=== PATIENT | male | born 1955 | race Caucasian/White ===

== ENCOUNTER 2021-07-16 08:16 | Outpatient (CLI) | payer MEDICARE, SELFPAY ==
--- NOTE | ~2021-07-16 | CT_ITS ---
EXAMINATION: CT lung screening DATE: 07/16/2021 08:43 INDICATION: Personal history of nicotine dependence, current smoker with 60 pack year history TECHNIQUE: Computed tomography (CT) of the chest was performed without intravenous contrast. The dose -length product (DLP) was 157.98 mGy-cm. Automated exposure control and iterative reconstruction tech [employer] were employed. COMPARISON: None FINDINGS: There is mild emphysema. No suspicious pulmonary nodules are identified. The lungs are free of acute opacities. There is no pleural effusion or pneumothorax. No pathologically enlarged thoraci c lymph nodes are identified. The heart size is normal. Calcified coronary artery atherosclerosis is noted. IMPRESSION: 1. Lung-RADS category 1: Negative. Continue annual screening with noncontrast low-dose chest CT in 12 months. Reviewed, dictated and finalized at location B. IMPRESSION: 1. Lung-RADS category 1: Negative. Continue annual screening with noncontrast l ow-dose chest CT in 12 months.
== END 2021-07-16 08:17 | disposition home or self-care (01) ==
LOC: ANHIMG 08:28
PROVIDERS: PCP Internal Medicine; Visit Provider Clinical Nurse Specialist
DX: Z12.2 Encounter for screening for malignant neoplasm of respiratory organs (principal); Z87.891 Personal history of nicotine dependence
CPT/HCPCS: 71271

== ENCOUNTER 2021-07-16 14:19 | Outpatient (CLI) | payer MEDICARE, SELFPAY | END 2021-07-16 14:20 | disposition home or self-care (01) | PROVIDERS: PCP Internal Medicine; Visit Provider Clinical Nurse Specialist | DX: H90.3 Sensorineural hearing loss, bilateral (principal) | CPT/HCPCS: 92557; 92567 ==

== ENCOUNTER 2021-10-06 10:14 | Outpatient (CLI) | payer MEDICARE, SELFPAY ==
--- NOTE | ~2021-10-06 | XR_ITS ---
XR lumbar spine 2-3V 10/06/2021 10:31 Indication: Low back pain Procedure: 3 views lumbar spine Comparison: 09/12/2013 Findings: There is disc narrowing at L3-4, L4-5 and L5-S1.. There is facet hypertrophy at L5-S1. No e vidence for spondylolisthesis. There is atherosclerosis of the aorta. Pedicles are intact. Sacral for amen are symmetric. Impression: 1: Moderate lumbar spondylosis. Reviewed, dictated and finalized at location A. Impression: 1: Moderate lumbar spondylosis.
== END 2021-10-06 10:15 | disposition home or self-care (01) ==
LOC: ANHIMG 10:17
PROVIDERS: PCP Internal Medicine; Visit Provider Clinical Nurse Specialist
DX: M54.50 Low back pain, unspecified (principal); M47.816 Spondylosis without myelopathy or radiculopathy, lumbar region
CPT/HCPCS: 72100

== ENCOUNTER 2021-10-13 09:11 | Outpatient (CLI) | payer MEDICARE, SELFPAY ==
[2021-10-13 10:54] LABS: Anion Gap 11 mmol/L (8-16); Blood Urea Nitrogen 19 mg/dL (9-20); Calcium 9.1 mg/dL (8.4-10.2); Carbon Dioxide 30 mmol/L (22-30); Chloride 95 mmol/L (98-107); Estimated Glomerular Filt Rate > 60; Glucose 120 mg/dL (65-110); Potassium 4.3 mmol/L (3.4-5.0); Sodium 136 mmol/L (137-145)
== END 2021-10-13 09:12 | disposition home or self-care (01) ==
LOC: ANHGOSHLAB 09:13
PROVIDERS: PCP Internal Medicine; Visit Provider Clinical Nurse Specialist
DX: I10 Essential (primary) hypertension (principal)
CPT/HCPCS: 36415; 80048

== ENCOUNTER 2021-10-15 13:26 | Outpatient (CLI) | payer MEDICARE, SELFPAY ==
--- NOTE | ~2021-10-15 | MR_ITS ---
EXAMINATION: MR lumbar spine wo con DATE: 10/15/2021 14:04 INDICATION: Moderate lumbar spondylosis. TECHNIQUE: Magnetic resonance imaging (MRI) of the lumbar spine was performed without intravenous con trast. Sequences included sagittal T2-weighted FSE, sagittal T2-weighted FS FSE, sagittal T1-weighted FSE, and axial T2-weighted FSE. COMPARISON: Lumbar spine MRI 10/20/2013, radiographs 10/06/2021 FINDINGS: There is 5 degrees levocurvature of lumbar spine. There is 3 mm retrolisthesis of L5 on S1. There is mild chronic anterior wedging of T12 vertebral body. There is mildly decreased disc height at L3-L4 and L4-L5 and severely decreased disc height at L5-S1 with endplate remodeling. The distal s anthony cord signal intensity is normal. The conus medullaris is at L1. The following disc levels are s pecifically discussed: L1-L2: The disc is bulging. There is mild bilateral facet joint osteoarthritis. There is mild left ne ural foraminal stenosis. There is mild central canal stenosis. L2-L3: The disc is bulging and has an annular fissure. There is mild bilateral facet joint osteoarthr itis. There is mild right and moderate left neural foraminal stenosis. There is mild central canal st enosis. L3-L4: The disc is bulging and has an annular fissure. There is moderate bilateral facet joint osteoa rthritis. There is moderate right and mild left neural foraminal stenosis. There is mild central miguel l stenosis. L4-L5: The disc is bulging and has an annular fissure. There is moderate bilateral facet joint osteoa rthritis. There is moderate bilateral neural foraminal stenosis. There is mild central canal stenosis . L5-S1: The disc is bulging and has an annular fissure. There is mild bilateral facet joint osteoarthr itis. There is mild bilateral neural foraminal stenosis. There is mild central canal stenosis. IMPRESSION: 1. Severe lumbar spondylosis, stable from 10/20/2013. Reviewed, dictated and finalized at location A.
== END 2021-10-15 13:27 | disposition home or self-care (01) ==
PROVIDERS: PCP Internal Medicine; Visit Provider Clinical Nurse Specialist
DX: M47.816 Spondylosis without myelopathy or radiculopathy, lumbar region (principal)
CPT/HCPCS: 72148

== ENCOUNTER 2022-04-23 13:45 | Outpatient (CLI) | payer MEDICARE, SELFPAY ==
--- NOTE | ~2022-04-23 | CT_ITS ---
EXAMINATION:CT lung screening DATE: 04/23/2022 13:59 INDICATION: Tobacco use. Current smoker with 40 pack year history. TECHNIQUE: Computed tomography (CT) of the chest was performed without intravenous contrast. Automate d exposure control and iterative reconstruction technique were employed. The dose-length product (DLP ) was 206.60 mGy-cm. COMPARISON: Chest CT 07/16/2021 FINDINGS: There is stable mild scarring at the lung apices. There is a 3 mm nodule in right lower lob e. No pleural effusion. The heart size is normal. There are coronary artery calcifications. No perica rdial effusion. There is diffuse hepatic steatosis. There is mild bilateral gynecomastia. There are s uture anchors in left humeral head. There is mild thoracic spondylosis. IMPRESSION: 1. Lung-RADS category 2: Benign appearance or behavior. Continue annual screening with noncontrast lo w-dose chest CT in 12 months. Reviewed, dictated and finalized at location A. 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 Lung-RADS category 2: Benign appearance or behavior. Continue annual screeni ng with noncontrast low-dose chest CT in 12 months.
== END 2022-04-23 13:46 | disposition home or self-care (01) ==
LOC: ANHIMG 13:48
PROVIDERS: PCP Internal Medicine; Visit Provider Clinical Nurse Specialist
DX: Z12.2 Encounter for screening for malignant neoplasm of respiratory organs (principal); Z87.891 Personal history of nicotine dependence
CPT/HCPCS: 71271

== ENCOUNTER 2022-05-19 08:00 | Outpatient (NON) | payer MEDICARE, SELFPAY | END 2022-05-19 08:01 | disposition home or self-care (01) | LOC: ANHLAB 05-20 09:19 | PROVIDERS: PCP Internal Medicine; Visit Provider Internal Medicine Gastroenterology | DX: Z12.11 Encounter for screening for malignant neoplasm of colon (principal) | CPT/HCPCS: 88305 ==

== ENCOUNTER 2022-05-19 11:11 | Day surgery (SDC) | payer MEDICARE, SELFPAY ==
[2022-04-23 09:00] VITALS: BMI 29.7
[2022-05-11 10:47] VITALS: BMI 29.8
--- NOTE | 2022-05-19 09:16 | WPDANESEPPF ---
Anes - Initial Pre Proc Eval Procedure: Operation Date: 05/19/22 13:00 Proposed Procedures p Screening Colonoscopy - Stuart Holden MD Date/Time: 05/19/22 09:16 Surgeon: Stuart Holden MD Pre Op Diagnosis: Neoplasm Screening Patient Data Age: 66 Gender: M Height: 1.8 m Weight: 97 kg Allergies Allergy/AdvReac Type Severity Reaction Status Date / Time No Known Allergies Allergy Verified 05/11/22 10:47 Home Medications Medication Instructions Recorded Confirmed Type aspirin 81 mg tablet,delayed 81 mg PO DAILY 08/05/21 05/11/22 History release (Adult Low Dose Aspirin) loratadine 10 mg tablet (Allergy 10 mg PO DAILY 10/05/21 05/11/22 History Relief (loratadine)) atorvastatin 10 mg tablet See Rx Instructions .Route 01/21/22 05/11/22 Rx .COMPLEX #90 tabs lisinopril 40 mg tablet See Rx Instructions .Route 02/02/22 05/11/22 Rx .COMPLEX #90 tabs hydrochlorothiazide 12.5 mg tablet See Rx Instructions .Route 04/20/22 05/11/22 Rx .COMPLEX #90 tabs Patient hx anesthesia problems: none Family hx anesthesia problems: none Results Review: All pre-operative results and documents have been reviewed as part of the pre-operative evaluation. [facility] Past Medical History Medical History Essential hypertension Hyperlipidemia Lumbar spondylosis Obesity VAMSI (obstructive sleep apnea) Smoker Surgical History Surgical History H/O hernia repair 2017 H/O shoulder surgery Left Fracture 2010 Family History Family History Father Family history of lung cancer Social History Social History (Updated 04/19/22 @ 10:03 by Tiana Martinez MA) Smoking packs per day: 1 Smoking cigarettes per day: 20.0 Years smoked: 40 Smoking pack-years: 40.00 Smoking status: Heavy tobacco smoker Tobacco type: cigarettes Smoking end date: 09/29/21 Alcohol intake: current Substance use: never Substance use type: does not use Lack of Transportation: No Lack of Food: Never True Current Housing: I Have Housing Concerned About Future Housing: No Difficulty Paying Gas/Electric Bills: No Difficulty Paying for Meds: No Currently Unemployed: No Living arrangements: alone Spiritual care concerns: No Anes - Eval Final PreProcedure Day of Procedure 05/19/22 09:16 Patient weight: obese Heart: regular rate and rhythm Lungs: clear to auscultation and normal air movement Airway: Mallampati scale class II Neurological: alert and oriented Last oral intake: >/= 8 hours ASA classification: III Emergent: no Anesthetic plan: proceed Anesthesia type and monitoring: general GIVS Results Review: All pre-operative results and documents have been reviewed as part of the pre-operative evaluation. Informed Consent: The patient's anesthetic plan and its attendant risks and benefits were discussed with the patient/family/POA. Questions were solicited and answers provided to the satisfaction of the patient/family/POA.
[2022-05-19 11:58] VITALS: BP 128/81; PULSE 92; RESP 15; TEMP 36.8; O2SAT 100; BMI 29.9
[2022-05-19] MEDS: LACTATED RINGERS 1,000 ML 150 ML IV CONT (12:10)
--- NOTE | 2022-05-19 12:38 | PM.HPGS ---
History of Present Illness History of Present Illness Consent: Risks, benefits, and alternatives have been discussed and questions answered. Patient agrees to proceed with procedure. Chief complaint: Neoplasm Screening Narrative: Kj Bermeo is a 66 year old male here for screening colonoscopy, last one 2013 Review of Systems Constitutional: Constitutional: Denies headache(s) and Denies weakness Eyes: Eyes: Denies blurry vision ENT: Reports Normal hearing present, Denies headache(s) and Denies neck pain Cardiovascular: Cardiovascular: Denies chest pain and Denies dyspnea Respiratory: Respiratory: Denies dyspnea Gastrointestinal: Gastrointestinal: Reports no additional gastrointestinal complaints Genitourinary: Genitourinary: Denies dysuria Musculoskeletal: Musculoskeletal: Denies neck pain Integumentary/Breasts: Skin/Breast: Denies dry skin Neurologic: Reports Normal hearing present, Denies headache(s) and Denies weakness Psychiatric: Psychiatric: Denies anxiety Endocrine: Endocrine: Denies change in body appearance Hematologic/Lymphatic: Hematologic/Lymphatic: Denies easy bleeding Allergic/Immunologic: Allergic/Immunologic: Denies urticaria PMFSH Past Medical History Medical History Essential hypertension Hyperlipidemia Lumbar spondylosis Obesity VAMSI (obstructive sleep apnea) Smoker Surgical History Surgical History H/O hernia repair 2017 H/O shoulder surgery Left Fracture 2010 Family History Family History Father Family history of lung cancer Social History Social History (Updated 04/19/22 @ 10:03 by Tiana Martinez MA) Smoking packs per day: 1 Smoking cigarettes per day: 20.0 Years smoked: 40 Smoking pack-years: 40.00 Smoking status: Heavy tobacco smoker Tobacco type: cigarettes Smoking end date: 09/29/21 Alcohol intake: current Substance use: never Substance use type: does not use Lack of Transportation: No Lack of Food: Never True Current Housing: I Have Housing Concerned About Future Housing: No Difficulty Paying Gas/Electric Bills: No Difficulty Paying for Meds: No Currently Unemployed: No Living arrangements: alone Spiritual care concerns: No Meds Home Medications and Allergies Home Medications Medication Instructions Recorded Confirmed Type aspirin 81 mg tablet,delayed 81 mg PO DAILY 08/05/21 05/19/22 History release (Adult Low Dose Aspirin) loratadine 10 mg tablet (Allergy 10 mg PO DAILY 10/05/21 05/19/22 History Relief (loratadine)) atorvastatin 10 mg tablet See Rx Instructions .Route 01/21/22 05/19/22 Rx .COMPLEX #90 tabs lisinopril 40 mg tablet See Rx Instructions .Route 02/02/22 05/19/22 Rx .COMPLEX #90 tabs hydrochlorothiazide 12.5 mg tablet See Rx Instructions .Route 04/20/22 05/19/22 Rx .COMPLEX #90 tabs Allergies Allergy/AdvReac Type Severity Reaction Status Date / Time No Known Allergies Allergy Verified 05/19/22 11:57 Vital Signs Vital Signs - 24 hr 05/19/22 11:58 Temperature 98.2 F Pulse Rate 92 Respiratory Rate 15 Blood Pressure 128/81 Pulse Oximetry 100 Oxygen Delivery Room Air Exam Const: General: comfortable and no acute distress HENMT: Face/Nose/Sinus: Normal nares present Eyes: General: appearance normal, both eyes and all related structures Neck: Neck: no JVD Resp: Auscultation: clear to auscultation bilaterally Cardio: Rate: regular rate Rhythm: regular rhythm GI: Inspection: non-distended GI Palp: Yes Soft to palpation Skin: General skin exam: normal color Neuro: General: gait normal Speech: normal speech Extrem: General: normal to inspection Psych: Mental Status: mental status grossly normal Assessment and Plan Assessment and plan (1) Screening for colon cancer: Code(s): Z12.11 - Encounter for screening f
[2022-05-19 13:06] VITALS: BP 94/61; PULSE 84; RESP 14; O2SAT 93
[2022-05-19 13:16] VITALS: BP 110/71; PULSE 75; RESP 18; O2SAT 100
[2022-05-19 13:26] VITALS: BP 122/84; PULSE 78; RESP 18; O2SAT 99
--- NOTE | 2022-05-19 14:21 | WPDANESPN ---
Anes - Prog Note Post-Op Date/Time: 05/19/22 14:21 Cardiovascular status: normal Respiratory status: normal Airway patency: baseline Mental status: baseline Post-Op hydration status: normal Vital Signs: Last Vital Signs Temp 36.8 C 05/19/22 11:58 Pulse 78 05/19/22 13:26 Resp 18 05/19/22 13:26 BP 122/84 05/19/22 13:26 Pulse Ox 99 05/19/22 13:26 O2 Del Method Room Air 05/19/22 13:26 Pain Score (VAS): 0 I/O: Intake & Output 05/18/22 05/19/22 05/19/22 23:59 07:59 15:59 Intake Total 500 Balance 500 Post-procedural complaints: none Patient Feedback: Patient satisfied with anesthetic care.
== END 2022-05-19 13:50 | disposition home or self-care (01) ==
PROVIDERS: PCP Internal Medicine; Visit Provider Internal Medicine Gastroenterology
PROC: 0DJD8ZZ Inspection of Lower Intestinal Tract, Via Natural or Artificial Opening Endoscopic (ICD-10-PCS; CPT 45378; principal; 2022-05-19 13:00)
DX: Z12.11 Encounter for screening for malignant neoplasm of colon (principal)
CPT/HCPCS: 45385

== ENCOUNTER 2022-09-17 11:53 | Outpatient (CLI) | payer MEDICARE, SELFPAY ==
[2022-09-17 18:31] LABS: Basophils Absolute Auto 0.1 K/mm3 (0.0-0.1); Basophils Percent Auto 0.7 % (0.2-1.2); Eosinophils Absolute Auto 0.1 K/mm3 (0-0.3); Eosinophils Percent Auto 0.9 % (0-4.4); Hematocrit 42.4 % (42.0-52.0); Hemoglobin 14.6 g/dL (14.0-18.0); Immature Granulocyte Absolute 0.03 K/mm3 (0.00-0.031); Immature Granulocyte Percent A 0.2 % (0-0.5); Lymphocytes Percent Auto 18.8 % (18.3-44.2); Mean Corpuscular HGB Conc 34.4 g/dl (32-36); Mean Corpuscular Hemoglobin 31.6 pg (26-34); Mean Corpuscular Volume 91.8 fl (80-100); Mean Platelet Volume 9.5 fl (7.4-10.4); Monocytes Absolute Auto 0.9 K/mm3 (0.1-0.6); Monocytes Percent Auto 7.5 % (2.6-8.5); Neutrophils Absolute Auto 8.8 K/mm3 (1.3-6.7); Neutrophils Percent Auto 71.9 % (45.5-73.1); Platelet Count Result 301 k/mm3 (150-375); Red Blood Count 4.62 M/mm3 (4.6-6.20); Red Cell Distribution Width 12.3 % (11.5-14.5); White Blood Count 12.2 K/mm3 (4.5-10.0)
[2022-09-17 19:01] LABS: Alanine Aminotransferase 34 U/L (6-50); Albumin Level 4.2 g/dL (3.5-5.1); Alkaline Phosphatase 83 U/L (38-126); Anion Gap 8 mmol/L (8-16); Aspartate Amino Transferase 27 U/L (17-59); Bilirubin,Total 0.7 mg/dL (0.2-1.3); Blood Urea Nitrogen 22 mg/dL (9-20); Carbon Dioxide 29 mmol/L (22-30); Chloride 100 mmol/L (98-107); Estimated Glomerular Filt Rate 55; Glucose 118 mg/dL (65-110); Potassium 3.4 mmol/L (3.4-5.0); Sodium 137 mmol/L (137-145)
[2022-09-17 20:19] LABS: Prostate Specific Antigen 1.2 ng/mL (< OR = 4.0)
== END 2022-09-17 11:54 | disposition home or self-care (01) ==
LOC: ANHGOSHLAB 11:54
PROVIDERS: PCP Internal Medicine; Visit Provider Clinical Nurse Specialist
DX: I10 Essential (primary) hypertension (principal); Z12.5 Encounter for screening for malignant neoplasm of prostate
CPT/HCPCS: 36415; 80053; 84153; 84443; 85025; G0103

== ENCOUNTER → 2022-09-21 07:46 | Outpatient (CLI) | payer MEDICARE, SELFPAY ==
--- NOTE | ~2022-09-21 | US_ITS ---
Ultrasound of the Abdominal Aorta INDICATION: Abdominal aortic aneurysm TECHNIQUE: Grayscale, color Doppler, and pulsed Doppler images of the aorta and common iliac arteries were obtained. COMPARISON: None. FINDINGS: Maximum vascular dimensions are as follows: Proximal aorta: 2.9 cm Mid aorta: 2.2 cm Distal aorta: 2.2 cm Right common iliac artery: 1.5 cm Left common iliac artery: 1.3 cm There is no evidence of abdominal aortic aneurysm. IMPRESSION: No evidence for abdominal aortic aneurysm. Reviewed, dictated and finalized at location M.
== END ==
PROVIDERS: PCP Internal Medicine; Visit Provider Clinical Nurse Specialist
DX: Z13.6 Encounter for screening for cardiovascular disorders (principal); F17.210 Nicotine dependence, cigarettes, uncomplicated
CPT/HCPCS: 76706

== ENCOUNTER 2022-11-16 12:30 | Outpatient (RCR) | payer MEDICARE, SELFPAY ==
--- NOTE | 2022-10-19 15:49 | OPREHPOC ---
Outpatient Therapy Plan of Care This is a Multidisciplinary Plan of Care that may contain components documented by all disciplines (PT, OT, and ST.) PT Problem 1 PT Problem #1 Knowledge Deficit PT Goal 1 Goal Pt to be IND with issued HEP Target Visit 4 PT Problem 2 PT Problem #2 Pain PT Goal 1 Goal Pt to report back pain no greater than 3/10 in the last week Target Visit 4 PT Goal 2 Goal Pt to report 75% improvement in overall symptoms Target Visit 4 PT Problem 3 PT Problem #3 Impaired Range of Motion PT Goal 1 Goal Pt to report no increase in pain with active lumbar motion Target Visit 4 PT Goal 2 Goal Pt to report no increase in pain with passive L hip motion. Target Visit 4 PT Problem 4 PT Problem #4 Impaired Functional Mobil PT Goal 1 Goal Pt to be able to stand for 1 hour prior to needing to sit. Target Visit 4
--- NOTE | 2022-10-19 15:49 | PTOPEVAL1 ---
Assessment and note entered by Kim Lala, PT, DPT Evaluation Information Assessment Status Evaluation Diagnosis low back pain Onset chronic Subjective Information Pt states his back pain is chronic and has gotten progressively worse over the last few years. He states he can no longer stand longer than 30 mins before needing to sit or lay down. He states his pain is centralized to the middle of his lower back and sometimes migrates to his upper back. Pt describes his pain as excruciating. Reported Pain Level Pain Score 5: Self Report Assessment PT Clinical Summary Kj presents to therapy today for his initial evaluation with a diagnosis of low back pain. Today he demonstrates decreased active lumbar ROM in all directions that is limited by pain reports, passive hip motion on the L also causes pain reportedly. Pt demonstrates increased soft tissue density and tenderness to palpation in lumbar and thoracic paraspinals. Skilled physical therapy services are indicated to manage pain, improve mobility, improve mechanics, and to return to PLOF . Plan of Care Interventions Electrical Stimulation,Gait Training,Hot Pack/Cold Pack,Manual Therapy,Mechanical Traction,Neuro Re- education,Patient/Caregiver Educati,Therapeutic Activities,Therapeutic Exercise PT Services Indicated Yes Treatment Frequency and 1x/wk for 4 visits Duration These treatments will address the objective and functional deficits as defined above. The patient will be advanced safely and appropriately in order for the patient to progress towards his/her prior level of function. Additional exercises will be introduced and as well as a comprehensive home exercise program upon discharge, if needed, ?to ensure carryover of functional gains achieved in the clinic. This treatment plan has been reviewed and agreement upon by the patient.
--- NOTE | 2022-11-16 13:14 | PTOPDC ---
Assessment and note entered by Kim Lala, PT, DPT Evaluation Information Assessment Status Discharge Diagnosis low back pain Onset chronic Subjective Information Pt states he is still in pain and he is not getting any better. He states it may even be getting a little worse. He reports compliance with his HEP 2x/day. He states he only has pain when he is leaning over. He states he knows his pain is joints and car Reported Pain Level Pain Score 7: Self Report Assessment PT Clinical Summary Kj presents to therapy today for his progress report following 4 visits of skilled therapy to treat his diagnosis of low back pain. Today he continues to report increased pain with lumbar motions in all directions. Today we worked on a hip hinge to limit lumbar flexion and pt reports decreased pain with these techniques. Pt reports he does not want to continue with therapy at this time and requests to be discharge, he states he wants to get an injection or surgery instead. He will therefore be discharged at this time. Plan of Care PT Services Indicated No
== END 2022-11-16 14:11 | disposition home or self-care (01) ==
LOC: ANHGOSHPT 12:30
PROVIDERS: PCP Internal Medicine; Visit Provider Anesthesiology Pain Medicine
DX: M47.817 Spondylosis without myelopathy or radiculopathy, lumbosacral region (principal); M54.9 Dorsalgia, unspecified; M54.6 Pain in thoracic spine; G89.29 Other chronic pain
CPT/HCPCS: 97014; 97110; 97140; 97161; 97530; G0283

== ENCOUNTER 2022-11-23 06:35 | Day surgery (SDC) | payer MEDICARE, SELFPAY ==
--- NOTE | ~2022-11-23 | XR_ITS ---
EXAMINATION: XR fluoroscopy no charge DATE: 11/23/2022 8:00 CDT INDICATION: RAJENDRA L3,4,5 MEDIAL BRANCH/DORSAL RAMUS PERIPHERAL NERVE BLOCK . TECHNIQUE: 9 fluoroscopic images of the lumbar spine were obtained during bilateral L3, 4, and 5 medi al branch/dorsal ramus peripheral nerve block performed by the surgeon. I was not present in the oper ating room. Fluoroscopy exposure time was 25.8 seconds. Air Kerma 14.18 mGy. COMPARISON: None FINDINGS: Needle access bilaterally at L3, L4, and L5, followed by contrast injection. IMPRESSION: Fluoroscopic documentation of bilateral L3, 4, and L5 medial branch/dorsal ramus peripheral nerve blo ck. Please refer to the operative note for complete procedural details . Reviewed, dictated and finalized at location K. IMPRESSION: Fluoroscopic documentation of bilateral L3, 4, and L5 medial branch/dorsal dannielle s peripheral nerve block. Please refer to the operative note for complete proce dural details .
[2022-11-23 07:05] VITALS: BP 150/79; PULSE 74; RESP 16; TEMP 37.2; O2SAT 100
--- NOTE | 2022-11-23 07:28 | WPDHPUPDATE1 ---
History and Physical Update Update Date/Time: 11/23/22 07:28 History and Physical has been reviewed, including an updated exam of the patient. There are NO changes in the patient's condition. Risks, benefits, and alternatives have been discussed and questions answered. Patient agrees to proceed with procedure.
[2022-11-23 08:08] VITALS: BP 137/68; PULSE 64; RESP 16; O2SAT 96
[2022-11-23] MEDS: LIDOCAINE HCL 1% PF INJ 5 ML VIAL 3 ML INFILTRATE (08:14)
[2022-11-23 08:18] VITALS: BP 127/58; PULSE 68; RESP 16; O2SAT 96
[2022-11-23] MEDS: BUPivacaine HCL 0.5% PF 30 ML VIAL INFILTRATE (08:22)
[2022-11-23 08:24] VITALS: BP 122/64; PULSE 67; RESP 67; O2SAT 96
--- NOTE | 2022-11-23 08:24 | W.PM.PROC2 ---
Procedure Note - Detailed Date of Procedure 11/23/22 Pre-op Diagnosis Lumbar Spondylosis, Chronic Low Back Pain Post-op Diagnosis Same Procedure Performed bilateral L3, L4, L5 medial branch/ dorsal ramus peripheral nerve blocks addressing the bilateral L4-5, L5-S1 facet joints under fluoroscopic guidance and with contrast controlled. Surgeon Ronald Rendon MD Anesthesia Local Indications Recalcitrant chronic low back pain secondary to lumbosacral spondylosis /facet joint arthropathy. Description of Procedure INFORMED CONSENT: Risks, benefits and alternatives to the procedure were discussed in detail with the patient who expressed explicit understanding and consent to proceed. Patient was informed verbally and in written form regarding the risks associated with the procedure including the low risk of serious infection, bleeding/bruising, allergic reaction, nerve or organ injury, paralysis, procedural site pain or discomfort, worsening pain and/or mobility, failure to treat and/or disfigurement. The patient expressed explicit understanding and consent to proceed. All materials required for the procedure were available prior to procedure start. Site and side were marked prior to procedure and confirmed in the presence of the patient. PROCEDURE IN DETAIL: The patient was brought to the procedural suite and placed in the prone position. Patient was made comfortable with use of pillows under the head/chest, hips and ankles. Skin overlying the injection site on the affected side(s) was prepared broadly with ChloraPrep applicator and draped in a sterile manner. Aseptic technique was used throughout. The endplates of the vertebral bodies at the site(s) of interest were aligned in the AP view. Ipsilateral oblique angulation was utilized to optimize visualization of the intersection between the superior articulating process and transverse process at each target site. Local anesthesia was established by infiltration with approximately 5 mL of 1% lidocaine via a 1-1/2 inch 27-gauge needle. A 25-gauge 5.0 inch Quincke spinal needle was advanced until the needle tip contacted periosteum at the target site, right L3. Lateral view was utilized to confirm the appropriate placement of the needle tip just anterior to the facet line and superior to the pedicle. In the Lateral view, 0.25 mL of Omnipaque 300 contrast medium was injected after negative aspiration for CSF, blood or other bodily fluid, showing appropriate extra-articular spread of contrast without evidence of intravascular, foraminal or intrathecal placement. A 0.5 mL solution of 0.5% PF bupivacaine was injected after negative repeat aspiration. Appropriate spread of the injectate was confirmed with washout of previously injected contrast. No parasthesias were elicited. Needle was removed completely intact without difficulty. The same exact procedure was repeated for all remaining levels on the ipsilateral side, right L4, L5 medial branches/dorsal ramus, modified as necessary to accommodate for the new target location with identical findings and results and no evidence of complication. The same exact procedure was repeated for all remaining levels on the contralateral side, left L3, L4, L5 medial branches/dorsal ramus, modified as necessary to accommodate for the new target location with identical findings and results and no evidence of complication. Images were saved and documented in the patient chart. Patient's skin was cleaned and sterile bandage applied. The patient tolerated the procedure well. The patient was transported to the recovery area in stable condition where they were observed for an appropriate amount of time prior to discharge, without evidence of complication. Patient was instructed on the appropriate completion of a pain diary over the next 12-24 hours. The patient was instructed to avoid excessive activity for the next 48 hours, including climbing and frequent use of stairs. Showers only for 4
[2022-11-23 08:26] VITALS: BP 130/79; PULSE 71; RESP 15; O2SAT 100
== END 2022-11-23 08:36 | disposition home or self-care (01) ==
PROVIDERS: PCP Internal Medicine; Visit Provider Anesthesiology Pain Medicine
PROC: (CPT 64493; principal; 2022-11-23 08:00)
DX: M47.817 Spondylosis without myelopathy or radiculopathy, lumbosacral region (principal); M54.59 Other low back pain
CPT/HCPCS: 64493; 99199

== ENCOUNTER 2022-12-21 06:17 | Day surgery (SDC) | payer MEDICARE, SELFPAY ==
--- NOTE | ~2022-12-21 | XR_ITS ---
EXAMINATION: XR fluoroscopy no charge INDICATION: Bilateral L3, L4, and L5 medial branch/dorsal ramus block TECHNIQUE: Nine intraoperative fluoroscopic images are submitted for review. Total fluoroscopic time was 27.6 seconds. COMPARISON: 11/23/2022 FINDINGS: Fluoroscopic images demonstrate bilateral needles at the L3, L4, and L5 foramina with assoc iated injection. Please refer to procedure note for full details. IMPRESSION: 1. Please refer to procedure note for full details. Reviewed, dictated and finalized at location F.
[2022-12-21 06:51] VITALS: BP 132/77; PULSE 91; RESP 18; TEMP 36.7; O2SAT 98
--- NOTE | 2022-12-21 07:13 | WPDHPUPDATE1 ---
History and Physical Update Update Date/Time: 12/21/22 07:13 History and Physical has been reviewed, including an updated exam of the patient. There are NO changes in the patient's condition. Risks, benefits, and alternatives have been discussed and questions answered. Patient agrees to proceed with procedure.
--- NOTE | 2022-12-21 07:28 | SUR.PREOP ---
When preparing Pt for pain management injection, Pt stated took aspirin yesterday and did not do 3 day hold as instructed. Dr. Rendon notified. No new orders at this time.
[2022-12-21 07:37] VITALS: BP 126/62; PULSE 73; RESP 20; O2SAT 94
[2022-12-21] MEDS: LIDOCAINE HCL 1% LOCAL INJ 20 ML VIAL 5 ML INFILTRATE (07:40)
[2022-12-21 07:42] VITALS: BP 112/57; PULSE 77; RESP 20; O2SAT 97
[2022-12-21 07:47] VITALS: BP 118/59; PULSE 76; RESP 23; O2SAT 95
[2022-12-21] MEDS: LIDOCAINE HCL 2% PF INJ 5 ML VIAL 3 ML INFILTRATE (07:55)
--- NOTE | 2022-12-21 07:55 | W.PM.PROC2 ---
Procedure Note - Detailed Date of Procedure 12/21/22 Pre-op Diagnosis Lumbosacral Spondylosis, dorsalgia Post-op Diagnosis Same Procedure Performed Bilateral L3, L4, L5 medial branch/ dorsal ramus diagnostic block under fluoroscopic guidance with contrast control (#2). Surgeon Ronald Rendon MD Knock Out Hand None. Anesthesia Local Indications chronic, recalcitrant low back pain secondary to lumbosacral spondylosis resulting in lumbar facet syndrome bilaterally Description of Procedure INFORMED CONSENT: Risks, benefits and alternatives to the procedure were discussed in detail with the patient who expressed explicit understanding and consent to proceed. Patient was informed verbally and in written form regarding the risks associated with the procedure including the low risk of serious infection, bleeding/bruising, allergic reaction, nerve or organ injury, paralysis, procedural site pain or discomfort, worsening pain and/or mobility, failure to treat and/or disfigurement. The patient expressed explicit understanding and consent to proceed. All materials required for the procedure were available prior to procedure start. Site and side were marked prior to procedure and confirmed in the presence of the patient. PROCEDURE IN DETAIL: The patient was brought to the procedural suite and placed in the prone position. Patient was made comfortable with use of pillows under the head/chest, hips and ankles. Skin overlying the injection site on the affected side(s) was prepared broadly with ChloraPrep applicator and draped in a sterile manner. Aseptic technique was used throughout. The endplates of the vertebral bodies at the site(s) of interest were aligned in the AP view. Ipsilateral oblique angulation was utilized to optimize visualization of the intersection between the superior articulating process and transverse process at each target site. Local anesthesia was established by infiltration with approximately 5 mL of 1% lidocaine via a 1-1/2 inch 27-gauge needle. A 25-gauge 5.0 inch Quincke spinal needle was advanced until the needle tip contacted periosteum at the target site, right L3. Lateral view was utilized to confirm the appropriate placement of the needle tip just anterior to the facet line and superior to the pedicle. In the Lateral view, 0.25 mL of Omnipaque 300 contrast medium was injected after negative aspiration for CSF, blood or other bodily fluid, showing appropriate extra-articular spread of contrast without evidence of intravascular, foraminal or intrathecal placement. A 0.5 mL solution of to 0.0% PF lidocaine was injected after negative repeat aspiration. Appropriate spread of the injectate was confirmed with washout of previously injected contrast. No parasthesias were elicited. Needle was removed completely intact without difficulty. The same exact procedure was repeated for all remaining levels on the ipsilateral side, right L4, L5 medial branches/dorsal ramus, modified as necessary to accommodate for the new target location with identical findings and results and no evidence of complication. The same exact procedure was repeated for all remaining levels on the contralateral side, left L3, L4, L5 medial branches/dorsal ramus, modified as necessary to accommodate for the new target location with identical findings and results and no evidence of complication. Images were saved and documented in the patient chart. Patient's skin was cleaned and sterile bandage applied. The patient tolerated the procedure well. The patient was transported to the recovery area in stable condition where they were observed for an appropriate amount of time prior to discharge, without evidence of complication. Patient was instructed on the appropriate completion of a pain diary over the next 12-24 hours. The patient was instructed to avoid excessive activity for the next 48 hours, including climbing and frequent use of stairs. Showers only for 48 hours. They were instruct
[2022-12-21 07:57] VITALS: BP 123/74; PULSE 93; RESP 22; O2SAT 100
== END 2022-12-21 08:09 | disposition home or self-care (01) ==
PROVIDERS: PCP Internal Medicine; Visit Provider Anesthesiology Pain Medicine
PROC: (CPT 64493; principal; 2022-12-21 07:30)
DX: M47.817 Spondylosis without myelopathy or radiculopathy, lumbosacral region (principal); M54.59 Other low back pain
CPT/HCPCS: 64493; 99199

== ENCOUNTER 2023-01-18 05:52 | Day surgery (SDC) | payer MEDICARE, SELFPAY ==
--- NOTE | 2023-01-17 11:37 | WPDANESEPPF ---
Anes - Initial Pre Proc Eval Procedure: Operation Date: 01/18/23 07:30 Proposed Procedures p Bilateral L3, L4, L5 Medial Branch/Dorsal Ramus Thermal Radiofrequency Ablation - Ronald Rendon MD Date/Time: 01/17/23 11:37 Surgeon: Ronald Rendon MD Pre Op Diagnosis: Lumbar Spondylosis Patient Data Age: 67 Gender: M Height: 1.8 m Weight: 95.708 kg Allergies Allergy/AdvReac Type Severity Reaction Status Date / Time No Known Allergies Allergy Verified 01/18/23 06:20 Home Medications Medication Instructions Recorded Confirmed Type aspirin 81 mg tablet,delayed 81 mg PO DAILY 08/05/21 01/18/23 History release (Adult Low Dose Aspirin) atorvastatin 10 mg tablet See Rx Instructions .Route 08/24/22 01/18/23 Rx .COMPLEX #90 tabs lisinopril 40 mg tablet 40 mg PO DAILY 11/19/22 01/18/23 History hydrochlorothiazide 12.5 mg tablet See Rx Instructions .Route 12/06/22 01/18/23 Rx .COMPLEX #90 tabs Patient hx anesthesia problems: none Family hx anesthesia problems: none Results Review: All pre-operative results and documents have been reviewed as part of the pre-operative evaluation. [facility] Past Medical History Medical History Essential hypertension Hyperlipidemia Lumbar spondylosis Obesity VAMSI (obstructive sleep apnea) Smoker Surgical History Surgical History H/O hernia repair 2017 H/O shoulder surgery Left Fracture 2010 Family History Family History Father Family history of lung cancer Social History Social History (Updated 01/18/23 @ 06:44 by Liborio Crawford DO) Smoking packs per day: 1 Smoking cigarettes per day: 20.0 Years smoked: 40 Smoking pack-years: 40.00 Smoking status: Current every day smoker Tobacco type: cigarettes Second hand tobacco smoke exposure: No Additional smoking assessment comments: 1 pack per day Alcohol intake: unknown Substance use: unknown Substance use type: does not use Lack of Transportation: No Lack of Food: Never True Current Housing: I Have Housing Concerned About Future Housing: No Difficulty Paying Gas/Electric Bills: No Difficulty Paying for Meds: No Currently Unemployed: No Living arrangements: alone Spiritual care concerns: No Anes - Eval Final PreProcedure Day of Procedure 01/17/23 11:37 Patient weight: overweight Heart: regular rate and rhythm Lungs: clear to auscultation Airway: Mallampati scale class II Neurological: alert and oriented Last oral intake: >/= 8 hours ASA classification: III Emergent: no Anesthetic plan: proceed Anesthesia type and monitoring: general GIVS and standard monitoring Results Review: All pre-operative results and documents have been reviewed as part of the pre-operative evaluation. Informed Consent: The patient's anesthetic plan and its attendant risks and benefits were discussed with the patient/family/POA. Questions were solicited and answers provided to the satisfaction of the patient/family/POA.
--- NOTE | ~2023-01-18 | XR_ITS ---
EXAMINATION: XR fluoroscopy no charge INDICATION: Medial thermal radiofrequency ablation TECHNIQUE: Six intraoperative fluoroscopic images are submitted for review. Total fluoroscopic time w as 30.1 seconds COMPARISON: None available FINDINGS: Fluoroscopic images demonstrate posterior needles at the levels of the L3-4, L4-5, and L5-S 1 disc spaces. There is mild lumbar spondylosis. IMPRESSION: 1. Please refer to procedure note for full details. Reviewed, dictated and finalized at location L. H FINISHER
--- NOTE | 2023-01-18 04:44 | WPDHPUPDATE1 ---
History and Physical Update Update Date/Time: 01/18/23 04:44 History and Physical has been reviewed, including an updated exam of the patient. There are NO changes in the patient's condition. Risks, benefits, and alternatives have been discussed and questions answered. Patient agrees to proceed with procedure.
[2023-01-18 06:25] VITALS: BP 127/68; PULSE 84; RESP 16; TEMP 36.8; O2SAT 100
[2023-01-18] MEDS: LACTATED RINGERS 1,000 ML 30 ML IV CONT (06:38)
[2023-01-18] MEDS: LIDOCAINE HCL 1% PF INJ 5 ML VIAL INFILTRATE (07:50)
[2023-01-18] MEDS: BUPivacaine HCL 0.5% 10 ML AMP INFILTRATE (07:50)
[2023-01-18] MEDS: LIDOCAINE HCL 2% PF INJ 5 ML VIAL 10 ML INFILTRATE (07:50)
[2023-01-18 07:59] VITALS: BP 104/66; PULSE 70; RESP 14; O2SAT 96
--- NOTE | 2023-01-18 08:03 | W.PM.PROC2 ---
Procedure Note - Detailed Date of Procedure 01/18/23 Pre-op Diagnosis Lumbar Spondylosis, Dorsalgia Post-op Diagnosis Same Procedure Performed Bilateral L3, L4, L5 medial branch/ dorsal ramus thermal radiofrequency ablation under fluoroscopic guidance. Surgeon Ronald Rendon MD Anesthesia MAC and Local Description of Procedure INFORMED CONSENT: Risks, benefits and alternatives to the procedure were discussed in detail with the patient who expressed explicit understanding and consent to proceed. Patient was informed verbally and in written form regarding the risks associated with the procedure including the low risk of serious infection, bleeding/bruising, allergic reaction, nerve or organ injury, paralysis, procedural site pain or discomfort, worsening pain and/or mobility, failure to treat and/or disfigurement. The patient expressed explicit understanding and consent to proceed. All materials required for the procedure were available prior to procedure start. Site and side were marked prior to procedure and confirmed in the presence of the patient. PROCEDURE IN DETAIL: The patient was brought to the procedural suite and placed in the prone position. Patient was made comfortable with use of pillows under the head/chest, hips and ankles. Skin overlying the injection site on the affected side(s) was prepared broadly with ChloraPrep applicator and draped in a sterile manner. Aseptic technique was used throughout. The endplates of the vertebral bodies at the site(s) of interest were aligned in the AP view. Ipsilateral oblique angulation was utilized to optimize visualization of the intersection between the superior articulating process and transverse process at each target site. Local anesthesia was established by infiltration with approximately 5 mL of 1% lidocaine via a 1-1/2 inch 27-gauge needle. An 16-gauge 100mm Klutchian RF needle with curved 10mm active tip was advanced in the AP view until the needle tip contacted the periosteum at the target site, Right L3 medial branch. Lateral view was utilized to adjust and confirm the appropriate placement of the needle tip just anterior to the facet line, superior to the pedicle and posterior to the foramen. The appropriately-sized RF cannula was inserted into the RF needle and motor stimulation performed with no subjective or objective evidence of recruited muscle activity with stimulation up to 3.0 volts at a frequency of 2Hz. 1.0 mL of 2.0% PF lidocaine was injected after negative aspiration. Grounding electrode in place and functioning. After a 90s pause, lesioning was performed to 90 degrees centigrade for 90s ensuring lack of symptoms in the extremity throughout. Needle was rotated 180 degrees and lesioning repeated in a similar manner. Patient tolerated this well. No parasthesias were elicited. Needle was removed completely intact without difficulty. The same procedure was repeated for all intended levels/ structures on the ipsilateral side, right L4, L5 medial branch/dorsal ramus with identical methodology, modified to compensate for new location, with similar results and no evidence of complication. The same exact procedure was repeated for all remaining levels on the contralateral side, left L3, L4, L5 medial branches/dorsal ramus, modified as necessary to accommodate for the new target location with identical findings/results and no evidence of complication. Images were saved and documented in the patient chart. Patient's skin was cleansed and sterile bandage applied. The patient tolerated the procedure well. The patient was transported to the recovery area in stable condition where they were observed for an appropriate amount of time prior to discharge, without evidence of complication. The patient was instructed to avoid excessive activity for the next 48 hours, including climbing and frequent use of stairs. Showers only for 48 hours. They were instructed not to drive or operate heavy machinery for 24
[2023-01-18 08:18] VITALS: BP 114/78; PULSE 74; RESP 16; O2SAT 97
--- NOTE | 2023-01-18 08:18 | SUR.PHASEII ---
PT AWAKE AND ALERT. DENIES PAIN. SITTING UPRIGHT ON STRETCHER, EATING AND DRINKING.
[2023-01-18 08:40] VITALS: BP 126/75; PULSE 70; RESP 16; O2SAT 99
--- NOTE | 2023-01-18 09:03 | SUR.PHASEII ---
0842; PT DRESSED AND READY, WAITING FOR RIDE.
== END 2023-01-18 08:55 | disposition home or self-care (01) ==
PROVIDERS: PCP Internal Medicine; Visit Provider Anesthesiology Pain Medicine
PROC: (CPT 64635; principal; 2023-01-18 07:30)
DX: M47.816 Spondylosis without myelopathy or radiculopathy, lumbar region (principal); M54.59 Other low back pain
CPT/HCPCS: 64635; 64636 ×2; 99199

== ENCOUNTER → 2023-03-01 11:18 | Outpatient (CLI) | payer MEDICARE, SELFPAY ==
--- NOTE | ~2023-03-01 | MR_ITS ---
MRI of the lumbar spine Clinical History: Back pain Technique: Axial T2-weighted images, and sagittal T1-weighted, T2-weighted, and T2 fat-sat images wer e acquired. Following intravenous administration of 19 cc MultiHance gadolinium, T1-weighted fat-sat imaging was performed in the axial and sagittal planes. COMPARISON: 10/15/2021 Findings: There is minimal grade 1 retrolisthesis of L5 over S1. No fracture and 5. No suspicious bon e marrow signal abnormality seen. At L1-L2, there is minimal disc bulge and mild to moderate facet arthropathy. No central canal stenos is. There is mild left neural foraminal narrowing. At L2-L3, there is mild disc bulge and mild to moderate facet arthropathy. No central canal stenosis. There is mild left neural foraminal narrowing. Right neural foramen preserved. At L3-L4, there is mild disc bulge and moderate facet arthropathy. No central canal stenosis. There i s moderate bilateral neural foraminal narrowing. At L4-L5, there is disc bulge and moderate facet arthropathy. No central canal stenosis. There is mod erate to severe bilateral neural foraminal narrowing. At L5-S1, there is advanced degenerative disc narrowing. There is central disc protrusion with modera te facet arthropathy. No central canal stenosis identified. There is mild bilateral neural foraminal narrowing. Paravertebral soft tissues are unremarkable. No abnormal postcontrast enhancement identified. Impression: Moderate degenerative spondylosis, as above. Reviewed, dictated and finalized at [facility]. TOP ENGINEER Impression: Moderate degenerative spondylosis, as above.
== END ==
PROVIDERS: PCP Internal Medicine; Visit Provider Anesthesiology Pain Medicine
DX: M43.06 Spondylolysis, lumbar region (principal); M51.37 Other intervertebral disc degeneration, lumbosacral region
CPT/HCPCS: 72158; A9577

== ENCOUNTER 2023-05-20 14:22 | Outpatient (CLI) | payer MEDICARE, SELFPAY ==
--- NOTE | ~2023-05-20 | CT_ITS ---
EXAMINATION:CT lung screening DATE: 05/20/2023 14:53 INDICATION: Personal history of nicotine dependence. Smoker who quit 1 year ago with 41 pack year his tory. TECHNIQUE: Computed tomography (CT) of the chest was performed without intravenous contrast. Automate d exposure control and iterative reconstruction technique were employed. The dose-length product (DLP ) was 184.57 mGy-cm. COMPARISON: Chest CT 04/23/2022 FINDINGS: There is stable mild scarring at the lung apices. There is a stable 3 mm nodule in right lo wer lobe. There is mild atelectasis bilaterally. No pleural effusion. The heart size is normal. No pe ricardial effusion. There is a 12 mm mass in left adrenal gland measuring low-attenuation, consistent with an adenoma. There are suture anchors in left humeral head. There is severe cervical spondylosis and mild thoracic spondylosis. IMPRESSION: 1. Lung-RADS category 2: Benign appearance or behavior. Continue annual screening with noncontrast lo w-dose chest CT in 12 months. Reviewed, dictated and finalized at location E. HOUSE SUPERVISOR IMPRESSION: 1. Lung-RADS category 2: Benign appearance or behavior. Continue annual screeni ng with noncontrast low-dose chest CT in 12 months.
== END 2023-05-20 14:23 | disposition home or self-care (01) ==
LOC: ANHIMG 14:26
PROVIDERS: PCP Internal Medicine; Visit Provider Clinical Nurse Specialist
DX: Z12.2 Encounter for screening for malignant neoplasm of respiratory organs (principal); Z87.891 Personal history of nicotine dependence
CPT/HCPCS: 71271

== ENCOUNTER 2023-09-22 10:48 | Outpatient (CLI) | payer MEDICARE, SELFPAY ==
[2023-09-22 19:53] LABS: Alanine Aminotransferase 57 U/L (6-50); Albumin Level 4.3 g/dL (3.5-5.1); Alkaline Phosphatase 66 U/L (38-126); Anion Gap 11 mmol/L (4-12); Aspartate Amino Transferase 40 U/L (17-59); Bilirubin,Total 0.7 mg/dL (0.2-1.3); Blood Urea Nitrogen 16 mg/dL (9-20); Calcium 8.8 mg/dL (8.4-10.2); Carbon Dioxide 26 mmol/L (22-30); Chloride 101 mmol/L (98-107); Cholesterol 190 mg/dL (0-200); Estimated Glomerular Filt Rate > 60; Glucose 142 mg/dL (65-110); HDL Direct 41 mg/dL; Potassium 4.1 mmol/L (3.4-5.0); Sodium 138 mmol/L (137-145); Triglycerides 209 mg/dL (<150)
[2023-09-22 20:05] LABS: Basophils Absolute Auto 0.1 K/mm3 (0.0-0.1); Basophils Percent Auto 0.9 % (0.2-1.2); Eosinophils Absolute Auto 0.2 K/mm3 (0-0.3); Eosinophils Percent Auto 2.7 % (0-4.4); Hematocrit 44.6 % (42.0-52.0); Hemoglobin 14.9 g/dL (14.0-18.0); Immature Granulocyte Absolute 0.04 K/mm3 (0.00-0.031); Immature Granulocyte Percent A 0.6 % (0-0.5); Lymphocytes Absolute Auto 2.59 K/mm3 (0.9-3.2); Lymphocytes Percent Auto 37.3 % (18.3-44.2); Mean Corpuscular HGB Conc 33.4 g/dl (32-36); Mean Corpuscular Hemoglobin 30.7 pg (26-34); Mean Corpuscular Volume 91.8 fl (80-100); Mean Platelet Volume 9.8 fl (7.4-10.4); Monocytes Absolute Auto 0.6 K/mm3 (0.1-0.6); Monocytes Percent Auto 8.3 % (2.6-8.5); Neutrophils Absolute Auto 3.5 K/mm3 (1.3-6.7); Neutrophils Percent Auto 50.2 % (45.5-73.1); Platelet Count Result 255 k/mm3 (150-375); Red Blood Count 4.86 M/mm3 (4.6-6.20); Red Cell Distribution Width 12.6 % (11.5-14.5)
[2023-09-22 20:07] LABS: LDL Cholesterol Direct 123 mg/dL
[2023-09-23 09:14] LABS: Hemoglobin A1C 6.1 % (<5.7)
== END 2023-09-22 10:49 | disposition home or self-care (01) ==
LOC: ANHGOSHLAB 10:49
PROVIDERS: Nurse Practitioner; PCP Internal Medicine; Visit Provider Clinical Nurse Specialist
DX: Z12.5 Encounter for screening for malignant neoplasm of prostate (principal); I10 Essential (primary) hypertension; R73.9 Hyperglycemia, unspecified; H60.91 Unspecified otitis externa, right ear; Z13.228 Encounter for screening for other metabolic disorders
CPT/HCPCS: 36415; 80053; 80061; 83036; 84153; 84443; 85025; G0103

== ENCOUNTER 2024-05-10 13:42 | Outpatient (CLI) | payer MEDICARE, SELFPAY ==
[2024-05-10 14:31] LABS: Anion Gap 11 mmol/L (4-12); Blood Urea Nitrogen 15 mg/dL (9-20); Carbon Dioxide 30 mmol/L (22-30); Chloride 102 mmol/L (98-107); Estimated Glomerular Filt Rate > 60; Glucose 108 mg/dL (65-110); Potassium 4.2 mmol/L (3.4-5.0); Sodium 143 mmol/L (137-145)
[2024-05-11 04:17] LABS: Hemoglobin A1C 5.6 % (<5.7)
== END 2024-05-10 13:43 | disposition home or self-care (01) ==
LOC: ANHGOSHLAB 13:43
PROVIDERS: PCP Internal Medicine; Visit Provider Clinical Nurse Specialist
DX: R73.01 Impaired fasting glucose (principal); I10 Essential (primary) hypertension
CPT/HCPCS: 36415; 80048; 83036

== ENCOUNTER 2024-05-21 13:32 | Outpatient (CLI) | payer MEDICARE, SELFPAY ==
--- NOTE | ~2024-05-21 | CT_ITS ---
EXAMINATION:CT lung screening DATE: 05/21/2024 13:48 INDICATION: Personal history of nicotine dependence. Smoker who quit 1 year ago with 41 pack year his tory. TECHNIQUE: Computed tomography (CT) of the chest was performed without intravenous contrast. Automate d exposure control and iterative reconstruction technique were employed. The dose-length product (DLP ) was 201.70 mGy-cm. COMPARISON: Chest CT 05/20/2023 FINDINGS: There is mild scarring at the lung apices. There are a few scattered 1-2 mm pulmonary nodul es. No pleural effusion. The heart size is normal. There are coronary artery calcifications. No peric ardial effusion. There is mild bilateral gynecomastia. There is diffuse hepatic steatosis. There are suture anchors in left humeral head. There is mild thoracic spondylosis. IMPRESSION: 1. Lung-RADS category 2: Benign appearance or behavior. Continue annual screening with noncontrast lo w-dose chest CT in 12 months. Reviewed, dictated and finalized at location B. IMPRESSION: 1. Lung-RADS category 2: Benign appearance or behavior. Continue annual screeni ng with noncontrast low-dose chest CT in 12 months.
== END 2024-05-21 13:33 | disposition home or self-care (01) ==
LOC: GOSHIMG 13:32
PROVIDERS: PCP Clinical Nurse Specialist; Visit Provider Clinical Nurse Specialist
DX: Z12.2 Encounter for screening for malignant neoplasm of respiratory organs (principal); Z87.891 Personal history of nicotine dependence
CPT/HCPCS: 71271

== ENCOUNTER 2024-10-08 15:51 | Outpatient (CLI) | payer MEDICARE, SELFPAY ==
--- OUTSIDE RECORDS SUMMARY | 2024-10-08 15:53 | XMS_ITS | Continuity of Care Document ---
Author Organization [facility] Address [address] [address] [place] [address] Phone Care Team Providers Care Steel Erector Name Role Phone Silvano Ford MD Unavailable Unavailable Advance Directives Directive Yes / No Effective Date File Name No Information Encounters Encounter Description Practice Location Reason(s) For Visit Diagnoses Date Provider Providers Copied on Encounter [facility], [address] [place], [place], [id number], [place] tel:[phone] [facility] No Information Logan Schaefer. [address] [facility] [place], [place], [id number], [place]. tel:[phone] Family History Family Member Type Diagnosis Age At Onset No Information Payers Payer name Insurance type Covered constitution party ID Authoriza tion(s) No Information Social [...]
[2024-10-08 18:44] LABS: Hematocrit 40.8 % (42.0-52.0); Hemoglobin 14.0 g/dL (14.0-18.0); Immature Granulocyte Percent A 0.5 % (0-0.5); Lymphocytes Absolute Auto 2.61 K/mm3 (0.9-3.2); Mean Corpuscular HGB Conc 34.3 g/dl (32-36); Mean Corpuscular Hemoglobin 31.3 pg (26-34); Mean Corpuscular Volume 91.1 fl (80-100); Nucleated Red Blood Cells Absolute Auto 0.000 K/mm3 (0.0-0.012); Nucleated Red Blood Cells Perc 0.0 % (0.0-0.2); Platelet Count Result 247 k/mm3 (150-375); Red Blood Count 4.48 M/mm3 (4.6-6.20); White Blood Count 8.4 K/mm3 (4.5-10.0)
[2024-10-08 19:10] LABS: Alanine Aminotransferase 80 U/L (6-50); Albumin Level 4.5 g/dL (3.5-5.1); Alkaline Phosphatase 73 U/L (38-126); Anion Gap 11 mmol/L (4-12); Aspartate Amino Transferase 57 U/L (17-59); Bilirubin,Total 0.5 mg/dL (0.2-1.3); Blood Urea Nitrogen 23 mg/dL (9-20); Calcium 9.8 mg/dL (8.4-10.2); Carbon Dioxide 25 mmol/L (22-30); Chloride 100 mmol/L (98-107); Cholesterol 199 mg/dL (0-200); Estimated Glomerular Filt Rate > 60; Glucose 124 mg/dL (65-110); HDL Direct 36 mg/dL; Hemoglobin A1C 6.2 % (<5.7); Potassium 3.8 mmol/L (3.4-5.0); Sodium 136 mmol/L (137-145); Total Protein 7.8 g/dL (6.3-8.2); Triglycerides 355 mg/dL (<150)
[2024-10-08 19:46] LABS: Prostate Specific Antigen 1.4 ng/mL (< OR = 4.0)
[2024-10-08 21:21] LABS: MALB Creatinine Ratio < 9.4 mg/g (0-30)
== END 2024-10-08 15:52 | disposition home or self-care (01) ==
LOC: ANHGOSHLAB 15:51
PROVIDERS: PCP Internal Medicine; Visit Provider Clinical Nurse Specialist
DX: R73.01 Impaired fasting glucose (principal); E78.2 Mixed hyperlipidemia; I10 Essential (primary) hypertension; Z12.5 Encounter for screening for malignant neoplasm of prostate; Z13.228 Encounter for screening for other metabolic disorders; F17.200 Nicotine dependence, unspecified, uncomplicated
CPT/HCPCS: 36415; 80053; 80061; 82043; 83036; 84153; 85025; G0103

== ENCOUNTER 2024-11-08 08:39 | Outpatient (CLI) | payer MEDICARE, SELFPAY ==
--- OUTSIDE RECORDS SUMMARY | 2013-05-21 19:00 | XMS_ITS | Continuity of Care Document ---
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 [address] [facility] [place], [place], [id number], [place]. tel:[phone] Family History Family Member Type Diagnosis Age At Onset No Information Payers Payer name Insurance type Covered alliance party ID Authoriza tion(s) No Information Social History Type Description Quantity Date Captured Comments Sex Male Smoking Status No Information Chief Complaint And Reason For Visit No Information Plan Of Treatment Date Type Action Status No Information History Of Present Illness Encounter Date Complaint History Of Prese nt Illness No Information Instructions Date Instruction Additional Infor mation No Information Assessments Type Assessment Date No Information
--- NOTE | ~2024-11-08 | NM_ITS ---
EXAMINATION: NM meredith stress w perfusion DATE: 11/08/2024 11:02 INDICATION: Chest pain TECHNIQUE: Rest images were obtained following intravenous administration of 11.0 mCi Tc99m tetrofosmin (Myoview). The patient was infused intravenously with Lexiscan (Regadenoson). Then, 34.7 mCi Tc99m tetrofosmin (Myoview) was administered intravenously, and stress images were obtained, initially in the supine position with repeat post stress images obtained in the prone position. Data was reconstructed into short axis and horizontal and vertical long axis SPECT images. Gated SPECT images were also obtained. COMPARISON: None. FINDINGS: There is likely diaphragmatic attenuation artifact along portions of the inferior and inferolateral wall which normalizes on the post stress imaging obtained in the prone position. A small focus of decreased perfusion at the apical septal segment on the rest and stress images also appears to normalize on the prone post stress imaging as well as on the gated post stress imaging during systole. There is normal left ventricular chamber size, wall motion and ejection fraction. Left ventricular ejection fraction measures 70%. IMPRESSION: 1. Normal myocardial perfusion during stress. 2. Left ventricular ejection fraction measuring 70%. Reviewed, dictated and finalized at location A.
--- NOTE | 2024-11-08 08:42 | EST_ITS ---
Patient Info Name: Kj Bermeo Age: 68 years : 1955 Gender: Male Ht: 71 in Wt: 234 lbs BSA: 2.34 m2 HR: 73 bpm BP: 90 / 46 mmHg Exam Date: 11/08/2024 8:42 AM Patient Status: O Admit Date: 11/08/2024 Exam Type: CA stress meredith w NM A regadenoson stress test was performed. Staff Referring Physician: Lexi ISRAEL Attending Provider: Lexi ISRAEL Exercise Technologist: Suly Choi Exercise Physician: Shayan Arambula DO Summary 1. 1. Negative lexiscan stress test for ischemic ST changes by ECG criteria. 2. 2. Stable hemodynamics throughout the test. 3. 3. Nuclear scan to follow and will be reported separately. Please correlate with it. 4. 4. Patient informed of the above results. Protocol: Lexiscan Stress ECG Details Stage: REST Duration (min): 1 min : 11 sec HR (bpm): 79 SBP (mmHg): 90 DBP (mmHg): 46 Stage: REST Duration (min): 5 min : 36 sec HR (bpm): 73 SBP (mmHg): 90 DBP (mmHg): 46 Stage: STAGE 1 Duration (min): 0 min : 59 sec HR (bpm): 88 SBP (mmHg): 120 DBP (mmHg): 57 Stage: RECOVERY Duration (min): 1 min : 0 sec HR (bpm): 92 SBP (mmHg): 120 DBP (mmHg): 57 Stage: RECOVERY Duration (min): 2 min : 0 sec HR (bpm): 85 SBP (mmHg): 120 DBP (mmHg): 57 Stage: RECOVERY Duration (min): 3 min : 0 sec HR (bpm): 85 SBP (mmHg): 107 DBP (mmHg): 52 Stage: RECOVERY Duration (min): 4 min : 0 sec HR (bpm): 80 SBP (mmHg): 107 DBP (mmHg): 52 Stage: RECOVERY Duration (min): 5 min : 0 sec HR (bpm): 80 SBP (mmHg): 98 DBP (mmHg): 55 Stage: RECOVERY Duration (min): 5 min : 4 sec HR (bpm): 79 SBP (mmHg): 98 DBP (mmHg): 55 Rest HR: 73 bpm Peak HR: 96 bpm Rest Sys BP: 90 mmHg Peak Sys BP: 120 mmHg Max Pred HR: 150 bpm % Max Pred HR: 64 % Target HR: 128 bpm Max RPP: 11,520 bpm*mmHg Termination Reason: Completed protocol Cardiac Symptoms: Shortness of breath Total Time: 1 min : 0 sec Rest Morales BP: 46 mmHg Peak Morales BP: 57 mmHg Total Dose: 0.4 mg Resting ECG Sinus rhythm, IRBBB. Stress ECG No ST changes. Arrhythmias None. Report Signatures
== END 2024-11-08 08:40 | disposition home or self-care (01) ==
PROVIDERS: PCP Internal Medicine; Visit Provider Clinical Nurse Specialist
DX: R07.9 Chest pain, unspecified (principal); I10 Essential (primary) hypertension
CPT/HCPCS: 78452; 93017; A9502; J2785

== ENCOUNTER 2024-11-13 12:20 | Outpatient (CLI) | payer MEDICARE, SELFPAY ==
--- NOTE | ~2024-11-13 | MR_ITS ---
EXAMINATION: MR lumbar spine wo con DATE: 11/13/2024 13:19 INDICATION: Low back pain and radiculopathy TECHNIQUE: Magnetic resonance imaging (MRI) of the lumbar spine was performed without intravenous contrast. Sequences included sagittal T2-weighted FSE, sagittal T2-weighted FS FSE, sagittal T1-weighted FSE, and axial T2-weighted FSE. COMPARISON: 03/01/2023 FINDINGS: No significant change in 3-4 mm retrolisthesis L5 on S1. 1-2 mm retrolisthesis L1 on L2, L2 on L3 and L3 on L4. Vertebral body heights are normal. Normal marrow signal. Mild disc height loss at L1-L2, L2-L3 and L3-4, moderate disc height loss at L4-L5 and severe disc height loss at L5-S1. Annular fissures at L2-L3 to L5-S1. The conus medullaris terminates at L1. There is normal signal in the caudal spinal cord. Paravertebral soft tissues are unremarkable. The following disc levels are specifically discussed: T12-L1: The disc does not extend beyond the endplate margin. There is mild bilateral facet joint osteoarthritis. There is no neural foraminal stenosis. There is no central canal stenosis. L1-L2: Disc is minimally bulging. There is mild bilateral facet joint osteoarthritis. There is mild left and minimal right neural foraminal stenosis. There is no central canal stenosis. L2-L3: Disc is mildly bulging with superimposed left foraminal zone annular fissure and disc protrusion There is mild right and mild to moderate left facet joint osteoarthritis. There is mild right and mild to moderate left neural foraminal stenosis. There is mild central canal stenosis along with mild narrowing of the left lateral recess. L3-L4: Moderate diffuse disc bulge. There is moderate bilateral facet joint osteoarthritis. There is moderate right and mild to moderate left neural foraminal stenosis. There is mild central canal stenosis. L4-L5: Moderate diffuse disc bulge. There is moderate bilateral facet joint osteoarthritis. There is moderate bilateral neural foraminal stenosis. There is mild central canal stenosis. L5-S1: Disc is bulging with annular fissure and small central disc extrusion with disc material extending couple millimeter caudal to the level of the superior endplate of S1. There is moderate bilateral facet joint osteoarthritis. There is mild bilateral neural foraminal stenosis. There is minimal central canal stenosis. IMPRESSION: 1. No significant change in moderate to severe lower lumbar spondylosis. Reviewed, dictated and finalized at location A.
== END 2024-11-13 12:21 | disposition home or self-care (01) ==
LOC: GOSHIMG 12:20
PROVIDERS: PCP Nurse Practitioner Family; Visit Provider Nurse Practitioner Family
DX: M54.16 Radiculopathy, lumbar region (principal)
CPT/HCPCS: 72148

== ENCOUNTER 2025-01-18 08:39 | Outpatient (CLI) | payer MEDICARE, SELFPAY ==
[2025-01-18 12:58] LABS: Iron 105 ug/dL (49-181)
[2025-01-18 13:11] LABS: Alanine Aminotransferase 71 U/L (6-50); Albumin Level 4.3 g/dL (3.5-5.1); Alkaline Phosphatase 76 U/L (38-126); Anion Gap 10 mmol/L (4-12); Aspartate Amino Transferase 61 U/L (17-59); Bilirubin,Total 0.5 mg/dL (0.2-1.3); Blood Urea Nitrogen 15 mg/dL (9-20); Calcium 8.7 mg/dL (8.4-10.2); Carbon Dioxide 24 mmol/L (22-30); Chloride 102 mmol/L (98-107); Cholesterol 172 mg/dL (0-200); Estimated Glomerular Filt Rate > 60; Glucose 182 mg/dL (65-110); HDL Direct 37 mg/dL; Potassium 4.6 mmol/L (3.4-5.0); Sodium 136 mmol/L (137-145); Total Protein 7.4 g/dL (6.3-8.2); Triglycerides 255 mg/dL (<150)
[2025-01-18 13:37] LABS: Percent Iron Saturation 35 % (20-50)
[2025-01-18 13:39] LABS: Ferritin 529.00 ng/mL (11.1-264)
[2025-01-18 13:47] LABS: Thyroid Stimulating Hormone 1.530 uIU/mL (0.465-4.680)
[2025-01-18 13:57] LABS: Hemoglobin A1C 6.4 % (<5.7)
== END 2025-01-18 08:40 | disposition home or self-care (01) ==
LOC: ANHGOSHLAB 08:40
PROVIDERS: PCP Clinical Nurse Specialist; Visit Provider Clinical Nurse Specialist
DX: E78.2 Mixed hyperlipidemia (principal); I10 Essential (primary) hypertension; R74.01 Elevation of levels of liver transaminase levels; R73.01 Impaired fasting glucose; R74.8 Abnormal levels of other serum enzymes
CPT/HCPCS: 36415; 80053; 80061; 82728; 83036; 83540; 83550; 84443; 86803

== ENCOUNTER 2025-01-25 08:54 | Outpatient (CLI) | payer MEDICARE, SELFPAY ==
--- NOTE | ~2025-01-25 | US_ITS ---
ULTRASOUND ABDOMEN LIMITED (RIGHT UPPER QUADRANT) Clinical History: R74.01 - Elevation of levels of liver transaminase levels Comparison: None Technique: Right upper quadrant sonography Findings: Liver: Nodular contour. Enlarged. Echogenic. No intrahepatic biliary ductal dilatation. Normal hepatopedal flow main portal vein. Common Duct: Normal caliber. 6 mm. Gallbladder: No stones. No wall thickening. No pericholecystic fluid. Pancreas: Unremarkable. IMPRESSION: 1. Hepatomegaly, with steatosis and/or hepatocellular disease. 2. Mild cirrhosis not excluded. Reviewed, dictated and finalized at location R. [facility]
== END 2025-01-25 08:55 | disposition home or self-care (01) ==
LOC: GOSHIMG 08:55
PROVIDERS: PCP Clinical Nurse Specialist; Visit Provider Clinical Nurse Specialist
DX: K74.60 Unspecified cirrhosis of liver (principal); K76.89 Other specified diseases of liver; R74.01 Elevation of levels of liver transaminase levels
CPT/HCPCS: 76705

== ENCOUNTER 2025-01-25 09:16 | Outpatient (CLI) | payer MEDICARE, SELFPAY ==
[2025-01-25 11:30] LABS: Alanine Aminotransferase 85 U/L (6-50); Albumin Level 4.5 g/dL (3.5-5.1); Alkaline Phosphatase 81 U/L (38-126); Anion Gap 7 mmol/L (4-12); Aspartate Amino Transferase 56 U/L (17-59); Bilirubin,Total 0.7 mg/dL (0.2-1.3); Blood Urea Nitrogen 19 mg/dL (9-20); Calcium 9.5 mg/dL (8.4-10.2); Carbon Dioxide 29 mmol/L (22-30); Chloride 102 mmol/L (98-107); Estimated Glomerular Filt Rate > 60; Glucose 149 mg/dL (65-110); Potassium 5.2 mmol/L (3.4-5.0); Sodium 138 mmol/L (137-145); Total Protein 7.7 g/dL (6.3-8.2)
[2025-01-25 11:52] LABS: Ferritin 606.00 ng/mL (11.1-264)
== END 2025-01-25 09:17 | disposition home or self-care (01) ==
PROVIDERS: PCP Clinical Nurse Specialist; Visit Provider Clinical Nurse Specialist
DX: R79.89 Other specified abnormal findings of blood chemistry (principal)
CPT/HCPCS: 36415; 80053; 81256; 82728